=== PATIENT | male | born 1955 | race Two or more races ===

== ENCOUNTER → 2017-02-28 | Outpatient (CLI) | payer BC ==
[2017-02-28 10:36] LABS: Albumin 3.8 g/dL (3.4-5.0); Bilirubin, Total 0.5 mg/dL (0.2-1.0); Calcium 8.8 mg/dL (8.5-10.1); Potassium 4.5 mmol/L (3.5-5.1); Total Protein 7.7 g/dL (6.4-8.2)
== END | disposition home or self-care (01) ==
LOC: LAB 09:37
PROVIDERS: ATTEND Internal Medicine
DX: E11.9 Type 2 diabetes mellitus without complications (principal); I10 Essential (primary) hypertension; Z12.11 Encounter for screening for malignant neoplasm of colon
CPT/HCPCS: 36415; 80053; 82607; 83036; 84153; 84439; 84443

== ENCOUNTER → 2017-03-06 | Outpatient (CLI) | payer BC | END | disposition home or self-care (01) | LOC: LAB 06:53 | PROVIDERS: ATTEND Internal Medicine | DX: E11.9 Type 2 diabetes mellitus without complications (principal); I10 Essential (primary) hypertension; Z12.11 Encounter for screening for malignant neoplasm of colon | CPT/HCPCS: 82270 ==

== ENCOUNTER → 2018-04-09 | Outpatient (CLI) | payer BC ==
[2018-04-09 08:34] LABS: Basophils # (auto) 0 uL; Eosinophils # (auto) 0.1 uL; Hemoglobin 11.8 g/dL (13.5-17.5); Lymphocytes # (auto) 1.8 uL; Lymphocytes % (auto) 32.2 % (10.0-50.0); Monocytes # (auto) 0.5 uL; Neutrophils # (auto) 3.1 uL; Neutrophils % (auto) 56.4 % (37.0-80.0)
[2018-04-09 08:37] LABS: Basophils % (auto) 0.4 % (0.0-2.0); Eosinophils % (auto) 1.6 % (0.0-7.0); Mean Corpuscular Hemoglobin 24.1 pg (28.0-32.0); Mean Corpuscular Volume 75.5 fL (80.0-100.0); Monocytes % (auto) 9.4 % (0.0-12.0); Platelet Count (auto) 353 10^3/uL (140-450); Red Blood Cells 4.89 10^6/uL (4.5-5.90); Red Cell Distribution Width 16.9 % (11.8-14.3); White Blood Cell 5.5 10^3/uL (4.4-10.8)
[2018-04-09 08:53] LABS: Urine Bacteria NONE SEEN /hpf (None Seen); Urine Blood Negative /uL (Negative); Urine Mucus FEW (None Seen); Urine Specific Gravity 1.018 (1.001-1.035)
[2018-04-09 08:56] LABS: Urine WBC 0 /hpf (0 - 3)
[2018-04-09 09:04] LABS: Free T4 (Free Thyroxine) 1.2 ng/dL (0.89-1.76)
[2018-04-09 09:16] LABS: Albumin 3.9 g/dL (3.4-5.0); Bilirubin, Total 0.3 mg/dL (0.2-1.0); Potassium 4.3 mmol/L (3.5-5.1); Total Protein 7.9 g/dL (6.4-8.2)
== END | disposition home or self-care (01) ==
LOC: LAB 07:05
PROVIDERS: ATTEND Internal Medicine
DX: I12.9 Hypertensive chronic kidney disease with stage 1 through stage 4 chronic kidney disease, or unspecified chronic kidney disease (principal); E11.22 Type 2 diabetes mellitus with diabetic chronic kidney disease; N18.3 Chronic kidney disease, stage 3 (moderate); I80.9 Phlebitis and thrombophlebitis of unspecified site; E78.5 Hyperlipidemia, unspecified; Z85.46 Personal history of malignant neoplasm of prostate
CPT/HCPCS: 36415; 80053; 80061; 81001; 82043; 82607; 83036; 84439; 84443; 85025; 85652

== ENCOUNTER 2018-08-21 07:51 | Day surgery (SDC) | payer BC ==
[2018-08-18 09:52] LABS: Basophils # (auto) 0 uL; Basophils % (auto) 0.4 % (0.0-2.0); Eosinophils # (auto) 0.1 uL; Eosinophils % (auto) 0.9 % (0.0-7.0); Hemoglobin 11.5 g/dL (13.5-17.5); Lymphocytes # (auto) 1.9 uL; Lymphocytes % (auto) 27.1 % (10.0-50.0); Mean Corpuscular Hemoglobin 24.6 pg (28.0-32.0); Mean Corpuscular Hgb Conc. 32.9 g/dL (32.0-36.0); Mean Corpuscular Volume 74.8 fL (80.0-100.0); Monocytes # (auto) 0.7 uL; Monocytes % (auto) 9.8 % (0.0-12.0); Neutrophils # (auto) 4.3 uL; Neutrophils % (auto) 61.8 % (37.0-80.0); Nucleated Red Blood Cells % 0.1 %; Platelet Count (auto) 364 10^3/uL (140-450); Red Blood Cells 4.68 10^6/uL (4.5-5.90); Red Cell Distribution Width 17.6 % (11.8-14.3)
[2018-08-18 10:09] LABS: INR 0.95 (0.9-1.15); Partial Thromboplastin Time 24.8 sec (23.78-33.04); Prothrombin Time 10.2 sec (9.27-12.13)
[~2018-08-21] VITALS: Ht 160 cm; Wt 61.7 kg
[~2018-08-21 07:51] MED LIST: LEVO50TA7 PO; LISI10TA6 PO; METF-370 PO; PRAV20TA3 PO
[2018-08-21] MEDS ORDERED: SODIUM CHLORIDE LOCK 10 ML ONE (08:22)
[2018-08-21] MEDS ORDERED: diphenhdrAMINE HCL 50 MG/1 ML VL ONE (08:22)
[2018-08-21] MEDS ORDERED: FLUMAZENIL 0.1 MG/ML INJ 10ML MDV IV ONE (08:22)
[2018-08-21] MEDS ORDERED: NALOXONE HCL 0.4 MG/ML VIAL ONE (08:22)
[2018-08-21] MEDS: MIDAZOLAM HCL 5 MG/ML-1ML VIAL ONE ×2 (09:16→09:23)
[2018-08-21] MEDS: fentaNYL CITRATE 100 MCG/2 ML VL ONE ×2 (09:16→09:23)
[2018-08-21 10:13] VITALS: BP 102/67
== END 2018-08-21 10:13 | disposition home or self-care (01) ==
LOC: GI 07:51
PROVIDERS: ATTEND Internal Medicine Gastroenterology
DX: Z12.11 Encounter for screening for malignant neoplasm of colon (principal); D12.2 Benign neoplasm of ascending colon; D12.3 Benign neoplasm of transverse colon; D12.4 Benign neoplasm of descending colon; K57.30 Diverticulosis of large intestine without perforation or abscess without bleeding; K64.8 Other hemorrhoids; E11.9 Type 2 diabetes mellitus without complications; Z88.0 Allergy status to penicillin; Z79.84 Long term (current) use of oral hypoglycemic drugs; Z79.899 Other long term (current) drug therapy
CPT/HCPCS: 36415; 45380; 82962; 85025; 85610; 85730; J2250; J3010; J7030; 99152

== ENCOUNTER → 2018-12-07 | Outpatient (CLI) | payer BC ==
[2018-12-07 08:47] LABS: Urine Bacteria NONE SEEN /hpf (None Seen); Urine Blood Negative /uL (Negative); Urine Specific Gravity 1.021 (1.001-1.035); Urine WBC <1 /hpf (0 - 3)
[2018-12-07 08:53] LABS: Basophils # (auto) 0 uL; Eosinophils # (auto) 0.1 uL; Hemoglobin 11.8 g/dL (13.5-17.5); Neutrophils # (auto) 2.3 uL; Red Cell Distribution Width 17.5 % (11.8-14.3)
[2018-12-07 08:56] LABS: Basophils % (auto) 0.6 % (0.0-2.0); Eosinophils % (auto) 1.7 % (0.0-7.0); Hematocrit 36.2 % (41.0-53.0); Lymphocytes % (auto) 40.5 % (10.0-50.0); Mean Corpuscular Hemoglobin 24.5 pg (28.0-32.0); Mean Corpuscular Hgb Conc. 32.7 g/dL (32.0-36.0); Mean Corpuscular Volume 74.7 fL (80.0-100.0); Monocytes # (auto) 0.5 uL; Monocytes % (auto) 10.5 % (0.0-12.0); Neutrophils % (auto) 46.7 % (37.0-80.0); Platelet Count (auto) 340 10^3/uL (140-450); Red Blood Cells 4.84 10^6/uL (4.5-5.90); White Blood Cell 4.9 10^3/uL (4.4-10.8)
[2018-12-07 09:03] LABS: Chloride 100 mmol/L (98-107); Potassium 4.5 mmol/L (3.5-5.1); Sodium 134 mmol/L (136-145)
[2018-12-07 09:21] LABS: Alanine Aminotransferase 27 U/L (16-61); Albumin 4.1 g/dL (3.4-5.0); Alkaline Phosphatase 71 U/L (45-117); Anion Gap 8 (5-15); Aspartate Aminotransferase 24 U/L (15-37); BUN/Creatinine Ratio 14.2; Bilirubin, Total 0.4 mg/dL (0.2-1.0); Blood Urea Nitrogen 15 mg/dL (7-18); Calcium 8.7 mg/dL (8.5-10.1); Carbon Dioxide 26 mmol/L (21-32); Cholesterol 151 mg/dL (< 200); GFR African American > 60 mL/min; GFR Non-African American > 60 mL/min; Glucose 112 mg/dL (74-106); HDL Cholesterol 54 mg/dL (40-59); LDL Cholesterol 87 mg/dL (< 100); Triglycerides 94 mg/dL (< 150)
[2018-12-07 09:42] LABS: Free T4 (Free Thyroxine) 1.29 ng/dL (0.89-1.76)
[2018-12-07 09:43] LABS: Prostate Specific Antigen 0.64 ng/mL (0.0-4.0)
== END | disposition home or self-care (01) ==
LOC: LAB 07:17
PROVIDERS: ATTEND Internal Medicine
DX: E11.9 Type 2 diabetes mellitus without complications (principal); R55 Syncope and collapse; I10 Essential (primary) hypertension; Z79.84 Long term (current) use of oral hypoglycemic drugs
CPT/HCPCS: 36415; 80053; 80061; 81001; 82043; 82607; 83036; 84153; 84439; 84443; 85025; 85652

== ENCOUNTER → 2019-02-04 | Outpatient (CLI) | payer BC | END | disposition home or self-care (01) | LOC: XYW 10:12 | PROVIDERS: ATTEND Internal Medicine Cardiovascular Disease | DX: R55 Syncope and collapse (principal) | CPT/HCPCS: 93017; 93306 ==

== ENCOUNTER → 2019-06-02 | Outpatient (CLI) | payer BC ==
[2019-06-02 15:37] LABS: Basophils # (auto) 0 uL; Basophils % (auto) 0.5 % (0.0-2.0); Eosinophils # (auto) 0 uL; Eosinophils % (auto) 0.8 % (0.0-7.0); Hematocrit 40.9 % (41.0-53.0); Hemoglobin 13.8 g/dL (13.5-17.5); Lymphocytes # (auto) 1.6 uL; Lymphocytes % (auto) 28.1 % (10.0-50.0); Mean Corpuscular Hemoglobin 29.9 pg (28.0-32.0); Mean Corpuscular Hgb Conc. 33.8 g/dL (32.0-36.0); Mean Corpuscular Volume 88.5 fL (80.0-100.0); Monocytes # (auto) 0.6 uL; Monocytes % (auto) 9.9 % (0.0-12.0); Neutrophils # (auto) 3.5 uL; Neutrophils % (auto) 60.7 % (37.0-80.0); Nucleated Red Blood Cells % 0.1 %; Platelet Count (auto) 307 10^3/uL (140-450); Red Blood Cells 4.62 10^6/uL (4.5-5.90); Red Cell Distribution Width 14.1 % (11.8-14.3); White Blood Cell 5.8 10^3/uL (4.4-10.8)
[2019-06-02 16:33] LABS: Albumin 4.1 g/dL (3.4-5.0); Calcium 9.1 mg/dL (8.5-10.1); Potassium 4.3 mmol/L (3.5-5.1)
[2019-06-02 16:35] LABS: BUN/Creatinine Ratio 11.2; Bilirubin, Total 0.4 mg/dL (0.2-1.0); Total Protein 7.5 g/dL (6.4-8.2)
== END | disposition home or self-care (01) ==
LOC: LAB 15:24
PROVIDERS: ATTEND Internal Medicine
DX: E03.9 Hypothyroidism, unspecified (principal); E11.9 Type 2 diabetes mellitus without complications
CPT/HCPCS: 36415; 80053; 83036; 84439; 84443; 85025

== ENCOUNTER → 2019-09-07 | Outpatient (CLI) | payer BC ==
[2019-09-07 08:37] LABS: Basophils # (auto) 0 uL; Basophils % (auto) 0.5 % (0.0-2.0); Eosinophils # (auto) 0.1 uL; Eosinophils % (auto) 2.7 % (0.0-7.0); Hematocrit 42.1 % (41.0-53.0); Hemoglobin 14.3 g/dL (13.5-17.5); Lymphocytes # (auto) 1.3 uL; Lymphocytes % (auto) 29.5 % (10.0-50.0); Mean Corpuscular Hemoglobin 30.5 pg (28.0-32.0); Mean Corpuscular Hgb Conc. 33.9 g/dL (32.0-36.0); Mean Corpuscular Volume 89.9 fL (80.0-100.0); Monocytes # (auto) 0.5 uL; Neutrophils # (auto) 2.4 uL; Neutrophils % (auto) 55.3 % (37.0-80.0); Nucleated Red Blood Cells % 0.1 %; Platelet Count (auto) 278 10^3/uL (140-450); Red Blood Cells 4.68 10^6/uL (4.5-5.90); Red Cell Distribution Width 13.3 % (11.8-14.3); White Blood Cell 4.3 10^3/uL (4.4-10.8)
[2019-09-07 09:01] LABS: BUN/Creatinine Ratio 10.1; Calcium 9.2 mg/dL (8.5-10.1)
[2019-09-07 09:11] LABS: Bilirubin, Total 0.4 mg/dL (0.2-1.0)
== END | disposition home or self-care (01) ==
LOC: LAB 08:17
PROVIDERS: ATTEND Internal Medicine
DX: E11.9 Type 2 diabetes mellitus without complications (principal); I10 Essential (primary) hypertension
CPT/HCPCS: 36415; 80053; 83036; 84439; 84443; 85025; 85652

== ENCOUNTER → 2019-12-15 | Outpatient (CLI) | payer BC ==
[2019-12-15 07:26] LABS: Urine WBC None Seen /hpf (0 - 3)
[2019-12-15 07:33] LABS: Basophils # (auto) 0 uL; Basophils % (auto) 0.5 % (0.0-2.0); Eosinophils # (auto) 0 uL; Eosinophils % (auto) 0.9 % (0.0-7.0); Hematocrit 41.1 % (41.0-53.0); Hemoglobin 14.4 g/dL (13.5-17.5); Lymphocytes # (auto) 1.5 uL; Lymphocytes % (auto) 34.4 % (10.0-50.0); Mean Corpuscular Hemoglobin 30.9 pg (28.0-32.0); Mean Corpuscular Volume 88.5 fL (80.0-100.0); Monocytes # (auto) 0.4 uL; Monocytes % (auto) 9.5 % (0.0-12.0); Neutrophils # (auto) 2.4 uL; Neutrophils % (auto) 54.7 % (37.0-80.0); Platelet Count (auto) 277 10^3/uL (140-450); Red Blood Cells 4.65 10^6/uL (4.5-5.90); Red Cell Distribution Width 13.7 % (11.8-14.3); White Blood Cell 4.4 10^3/uL (4.4-10.8)
[2019-12-15 07:40] LABS: Urine Bacteria NONE SEEN /hpf (None Seen); Urine Blood Negative /uL (Negative); Urine Mucus FEW (None Seen)
[2019-12-15 07:53] LABS: Albumin 4.2 g/dL (3.4-5.0); Calcium 9.1 mg/dL (8.5-10.1); Potassium 4.6 mmol/L (3.5-5.1)
[2019-12-15 07:58] LABS: BUN/Creatinine Ratio 12.4; Bilirubin, Total 0.6 mg/dL (0.2-1.0); Total Protein 7.8 g/dL (6.4-8.2)
[2019-12-15 08:13] LABS: Free T4 (Free Thyroxine) 1.32 ng/dL (0.89-1.76); Prostate Specific Antigen 0.58 ng/mL (0.0-4.0)
== END | disposition home or self-care (01) ==
LOC: LAB 07:09
PROVIDERS: ATTEND Internal Medicine
DX: E11.9 Type 2 diabetes mellitus without complications (principal); R35.1 Nocturia
CPT/HCPCS: 36415; 80053; 80061; 81001; 82043; 83036; 84153; 84439; 84443; 85025; 85652

== ENCOUNTER 2020-01-27 08:31 | Day surgery (SDC) | payer BC ==
[2020-01-25 15:48] LABS: Basophils # (auto) 0 10 ^3/uL (0-0.2); Basophils % (auto) 0.4 % (0.0-2.0); Eosinophils # (auto) 0 10 ^3/uL (0-0.8); Eosinophils % (auto) 0.6 % (0.0-7.0); Hematocrit 40.5 % (41.0-53.0); Hemoglobin 13.9 g/dL (13.5-17.5); Lymphocytes # (auto) 1.6 10 ^3/uL (0.4-5.4); Lymphocytes % (auto) 31.2 % (10.0-50.0); Mean Corpuscular Hemoglobin 30.3 pg (28.0-32.0); Mean Corpuscular Hgb Conc. 34.3 g/dL (32.0-36.0); Mean Corpuscular Volume 88.2 fL (80.0-100.0); Monocytes # (auto) 0.5 10 ^3/uL (0-1.3); Monocytes % (auto) 9.5 % (0.0-12.0); Neutrophils % (auto) 58.3 % (37.0-80.0); Platelet Count (auto) 307 10^3/uL (140-450); Red Cell Distribution Width 13.6 % (11.8-14.3); White Blood Cell 5.1 10^3/uL (4.4-10.8)
[2020-01-25 15:52] LABS: Urine Bacteria NONE SEEN /hpf (None Seen); Urine Blood Negative /uL (Negative); Urine Specific Gravity 1.004 (1.001-1.035); Urine WBC <1 /hpf (0 - 3)
[2020-01-25 16:09] LABS: Albumin 4.3 g/dL (3.4-5.0); Potassium 4.5 mmol/L (3.5-5.1)
[2020-01-25 16:33] LABS: INR 1.01 (0.9-1.15); Partial Thromboplastin Time 25.3 sec (23.64-32.05)
[2020-01-25 16:38] LABS: BUN/Creatinine Ratio 12.1; Bilirubin, Total 0.3 mg/dL (0.2-1.0); Total Protein 7.9 g/dL (6.4-8.2)
[~2020-01-27] VITALS: Ht 160 cm; Wt 58.1 kg
[2020-01-27] MEDS ORDERED: BUPIVACAINE 0.25% INJ 50ML VIAL ONE (08:54)
[2020-01-27] MEDS ORDERED: levoFLOXacin 500MG 100 ML IV ONE (08:54)
[2020-01-27] MEDS ORDERED: SUCCINYLCHOLINE CHLORIDE 20 MG/ML 10ML VIAL IV ONE (09:17)
[2020-01-27] MEDS ORDERED: LIDOCAINE 1% (LOCAL ANESTH.) PF 5ml SDV ONE (09:17)
[2020-01-27] MEDS ORDERED: MIDAZOLAM HCL 1MG/1ML-2 ML VIAL ONE (09:20)
[2020-01-27] MEDS ORDERED: METOCLOPRAMIDE HCL 5MG/ml INJ 2ml VIAL ONE (09:20)
[2020-01-27] MEDS ORDERED: PROPOFOL 10 MG/ML 20 ML IV ONE (09:23)
[2020-01-27] MEDS ORDERED: ROCURONIUM 10MG/ML 10ML VIAL IV ONE (09:23)
[2020-01-27] MEDS ORDERED: fentaNYL CITRATE 100 MCG/2 ML VL ONE (09:36)
[2020-01-27] MEDS ORDERED: PHENYLEPHRINE HCL 10 MG/ML VL ONE (09:37)
[2020-01-27] MEDS ORDERED: ePHEDrine SULFATE 50 MG/ML AMP ONE (09:37)
[2020-01-27] MEDS ORDERED: STERILE WATER 20 ML ONE (09:37)
[2020-01-27] MEDS ORDERED: ACCU-CHEK COMFORT CURVE STRIP VI ONE (09:45)
[2020-01-27] MEDS ORDERED: ONDANSETRON HCL 4 MG/2 ML VIAL IV PRN (09:45)
[2020-01-27] MEDS ORDERED: ePHEDrine SULFATE 50 MG/ML AMP IV PRN (09:45)
[2020-01-27] MEDS ORDERED: NALOXONE HCL 0.4 MG/ML VIAL IV PRN (09:45)
[2020-01-27] MEDS ORDERED: HYDROmorphone HCL 2 MG/ML VL IV PRN (09:45)
[2020-01-27] MEDS ORDERED: BACITRACIN INJ 50000 UNIT VIAL ONE (09:51)
[2020-01-27] MEDS ORDERED: KETOROLAC TROMETH 30 MG/ML 1ML VIAL ONE (09:57)
[2020-01-27] MEDS ORDERED: GLYCOPYRROLATE 0.2 MG/ML 1ML VIAL ONE (10:13)
[2020-01-27] MEDS ORDERED: NEOSTIGMINE 1 MG/ML INJ (10mg/10ML VIAL) ONE (10:13)
[2020-01-27] MEDS: HYDROmorphone HCL 2 MG/ML VL IV PRN ×3 (10:50→11:12)
[2020-01-27 11:54] VITALS: BP 125/65
== END 2020-01-27 12:30 | disposition home or self-care (01) ==
LOC: SUR 08:31
PROVIDERS: ATTEND Surgery Pediatric Surgery
DX: K40.30 Unilateral inguinal hernia, with obstruction, without gangrene, not specified as recurrent (principal); K66.0 Peritoneal adhesions (postprocedural) (postinfection); I10 Essential (primary) hypertension; E11.40 Type 2 diabetes mellitus with diabetic neuropathy, unspecified; E03.9 Hypothyroidism, unspecified; Z79.84 Long term (current) use of oral hypoglycemic drugs; Z79.899 Other long term (current) drug therapy; Z88.0 Allergy status to penicillin
CPT/HCPCS: 36415; 49507; 80053; 81001; 82962; 85025; 85610; 85730; 88302; C1781; J0330; J1170; J1885; J1956; J2250; J2370; J2704; J2765; J3010; J3490; J7030

== ENCOUNTER 2020-01-27 22:00 | Inpatient (IN) | payer BC ==
[~2020-01-27] VITALS: Ht 160 cm; Wt 55.5 kg
[2020-01-27 22:38] LABS: Basophils # (auto) 0 10 ^3/uL (0-0.2); Basophils % (auto) 0.3 % (0.0-2.0); Eosinophils # (auto) 0 10 ^3/uL (0-0.8); Hematocrit 35.5 % (41.0-53.0); Hemoglobin 12.5 g/dL (13.5-17.5); Lymphocytes # (auto) 0.7 10 ^3/uL (0.4-5.4); Lymphocytes % (auto) 7.6 % (10.0-50.0); Mean Corpuscular Hemoglobin 31.2 pg (28.0-32.0); Mean Corpuscular Hgb Conc. 35.4 g/dL (32.0-36.0); Mean Corpuscular Volume 88.3 fL (80.0-100.0); Monocytes # (auto) 0.6 10 ^3/uL (0-1.3); Neutrophils # (auto) 7.3 10 ^3/uL (1.6-8.6); Neutrophils % (auto) 85.1 % (37.0-80.0); Platelet Count (auto) 249 10^3/uL (140-450); Red Blood Cells 4.02 10^6/uL (4.5-5.90); Red Cell Distribution Width 13.6 % (11.8-14.3); White Blood Cell 8.6 10^3/uL (4.4-10.8)
[2020-01-27 22:57] LABS: Albumin 3.5 g/dL (3.4-5.0); Calcium 8.1 mg/dL (8.5-10.1); Magnesium 1.6 mg/dL (1.6-2.6)
[2020-01-27 23:01] LABS: INR 1.09 (0.9-1.15); Partial Thromboplastin Time 24.1 sec (23.64-32.05)
[2020-01-27 23:02] LABS: BUN/Creatinine Ratio 11.2; Bilirubin, Total 0.6 mg/dL (0.2-1.0); Total Protein 6.8 g/dL (6.4-8.2)
[2020-01-27] MEDS ORDERED: ONDANSETRON HCL 4 MG/2 ML VIAL IV ONE (23:30)
[2020-01-28] VITALS (7 sets, daily range): BP systolic 117–166; BP diastolic 66–102
[2020-01-28 00:58] LABS: Urine Amorphous Crystal FEW /hpf (None Seen); Urine Bacteria NONE SEEN /hpf (None Seen); Urine Blood Negative /uL (Negative); Urine Mucus FEW (None Seen); Urine Specific Gravity 1.013 (1.001-1.035); Urine WBC 1 /hpf (0 - 3)
[2020-01-28] MEDS ORDERED: ONDANSETRON HCL 4 MG/2 ML VIAL IV PRN (02:30)
[2020-01-28] MEDS ORDERED: HYDROcodone-ACET 5/325MG TAB PO PRN (02:30)
[2020-01-28] MEDS ORDERED: cloNIDine HCL 0.1 MG TAB PO PRN (02:30)
[2020-01-28] MEDS ORDERED: TEMAZEPAM 15 MG CAP PO PRN (02:30)
[2020-01-28] MEDS ORDERED: DEXTROSE (50%) 50ML SYRG IV PRN (02:30)
[2020-01-28] MEDS ORDERED: ACETAMINOPHEN 325 MG TAB PO PRN (02:30)
[2020-01-28] MEDS ORDERED: MORPHINE SULF INJ 2 MG/ML SYRINGE 1ML IV PRN (02:45)
[2020-01-28] MEDS ORDERED: NITROGLYCERIN 0.4 MG SL TAB SL PRN (02:45)
[2020-01-28] MEDS: SODIUM CHLORIDE 0.9% 1,000 ML IV SCH ×2 (02:59→16:22)
[2020-01-28] MEDS: InsuLIN REG 1unit/0.01ml Soln (100units/ml) SC SCH ×4 (06:31→22:22)
[2020-01-28] MEDS: LEVOTHYROXINE SODIUM 25 MCG TAB PO SCH ×3 (06:31→07:55)
[2020-01-28] MEDS: ACCU-CHEK COMFORT CURVE STRIP VI SCH ×4 (06:34→22:22)
[2020-01-28] MEDS: FAMOTIDINE 20 MG TAB PO SCH ×2 (10:38→22:18)
[2020-01-28] MEDS: LISINOPRIL 10 MG TAB PO SCH (11:30)
[2020-01-28 11:52] LABS: Basophils # (auto) 0 10 ^3/uL (0-0.2); Basophils % (auto) 0.1 % (0.0-2.0); Eosinophils # (auto) 0 10 ^3/uL (0-0.8); Eosinophils % (auto) 0.4 % (0.0-7.0); Hematocrit 39.7 % (41.0-53.0); Hemoglobin 13.3 g/dL (13.5-17.5); Lymphocytes # (auto) 0.9 10 ^3/uL (0.4-5.4); Lymphocytes % (auto) 16.5 % (10.0-50.0); Mean Corpuscular Hemoglobin 29.8 pg (28.0-32.0); Mean Corpuscular Hgb Conc. 33.6 g/dL (32.0-36.0); Mean Corpuscular Volume 88.5 fL (80.0-100.0); Monocytes # (auto) 0.6 10 ^3/uL (0-1.3); Monocytes % (auto) 10.5 % (0.0-12.0); Neutrophils # (auto) 4.1 10 ^3/uL (1.6-8.6); Neutrophils % (auto) 72.5 % (37.0-80.0); Platelet Count (auto) 302 10^3/uL (140-450); Red Blood Cells 4.48 10^6/uL (4.5-5.90); Red Cell Distribution Width 13.6 % (11.8-14.3); White Blood Cell 5.7 10^3/uL (4.4-10.8)
[2020-01-28 12:04] LABS: BUN/Creatinine Ratio 7.1; Calcium 8.8 mg/dL (8.5-10.1); Potassium 3.8 mmol/L (3.5-5.1)
[2020-01-28 12:13] LABS: Folate (Folic Acid) 20.99 ng/mL (5.38-24)
[2020-01-28] MEDS ORDERED: PRAVASTATIN SODIUM 20 MG TAB PO SCH (22:00)
[2020-01-29 05:30] VITALS: BP 139/93
[2020-01-29] MEDS: SODIUM CHLORIDE 0.9% 1,000 ML IV SCH ×3 (05:33→09:12)
[2020-01-29 06:17] LABS: Calcium 8.9 mg/dL (8.5-10.1); Potassium 4.5 mmol/L (3.5-5.1)
[2020-01-29 06:20] LABS: BUN/Creatinine Ratio 11.5
[2020-01-29] MEDS: LEVOTHYROXINE SODIUM 25 MCG TAB PO SCH (06:44)
[2020-01-29] MEDS: ACCU-CHEK COMFORT CURVE STRIP VI SCH ×2 (06:51→11:30)
[2020-01-29] MEDS: InsuLIN REG 1unit/0.01ml Soln (100units/ml) SC SCH ×2 (06:51→12:15)
[2020-01-29 09:00] VITALS: BP 137/92
[2020-01-29] MEDS: FAMOTIDINE 20 MG TAB PO SCH (09:10)
[2020-01-29] MEDS: LISINOPRIL 10 MG TAB PO SCH (09:11)
[2020-01-29 12:32] VITALS: BP 137/92
== END 2020-01-29 13:32 | disposition home or self-care (01) | DRG 312 ==
LOC: EDBD 22:00 → EEVIPCON 22:00 → ER 22:00 → TELE-EAST 22:01 → ER 01-28 03:15
PROVIDERS: ADMIT Nurse Practitioner; ATTEND Internal Medicine
DX: R55 Syncope and collapse (principal); E87.1 Hypo-osmolality and hyponatremia; E86.1 Hypovolemia; I10 Essential (primary) hypertension; E78.5 Hyperlipidemia, unspecified; E11.65 Type 2 diabetes mellitus with hyperglycemia; E78.00 Pure hypercholesterolemia, unspecified; E03.9 Hypothyroidism, unspecified; Z79.899 Other long term (current) drug therapy; Z79.84 Long term (current) use of oral hypoglycemic drugs; Z88.0 Allergy status to penicillin
CPT/HCPCS: 36415; 70450; 71045; 72125; 80048; 80053; 81001; 82607; 82746; 82962; 83735; 83880; 84443; 84484; 85025; 85610; 85730; 87081; 93005; 93306; 93886; 96374; G0378; J2405

== ENCOUNTER → 2020-06-05 | Outpatient (CLI) | payer BC ==
[2020-06-05 13:41] LABS: Albumin 3.8 g/dL (3.4-5.0); Calcium 8.9 mg/dL (8.5-10.1); Potassium 4.2 mmol/L (3.5-5.1)
[2020-06-05 13:45] LABS: BUN/Creatinine Ratio 18.1; Bilirubin, Total 0.3 mg/dL (0.2-1.0); Total Protein 7.8 g/dL (6.4-8.2)
== END | disposition home or self-care (01) ==
LOC: LAB 12:39
PROVIDERS: ATTEND Internal Medicine
DX: E03.8 Other specified hypothyroidism (principal); E11.40 Type 2 diabetes mellitus with diabetic neuropathy, unspecified; I10 Essential (primary) hypertension
CPT/HCPCS: 36415; 80053; 82306; 83036; 84439; 84443

== ENCOUNTER 2020-08-18 17:25 | Emergency (ER) | payer BC ==
[~2020-08-18] VITALS: Ht 160 cm; Wt 55.3 kg
[~2020-08-18 17:25] MED LIST changes: +LISI-648 PO; -LISI10TA6 PO
[2020-08-18 18:16] LABS: Basophils # (auto) 0 10 ^3/uL (0-0.2); Basophils % (auto) 0.6 % (0.0-2.0); Eosinophils # (auto) 0.1 10 ^3/uL (0-0.8); Eosinophils % (auto) 1.3 % (0.0-7.0); Hematocrit 39.7 % (41.0-53.0); Hemoglobin 13.5 g/dL (13.5-17.5); Lymphocytes # (auto) 2.2 10 ^3/uL (0.4-5.4); Lymphocytes % (auto) 36.5 % (10.0-50.0); Mean Corpuscular Hemoglobin 29.9 pg (28.0-32.0); Mean Corpuscular Volume 87.9 fL (80.0-100.0); Monocytes # (auto) 0.6 10 ^3/uL (0-1.3); Monocytes % (auto) 10.3 % (0.0-12.0); Neutrophils # (auto) 3.1 10 ^3/uL (1.6-8.6); Neutrophils % (auto) 51.3 % (37.0-80.0); Nucleated Red Blood Cells % 0.1 %; Platelet Count (auto) 335 10^3/uL (140-450); Red Blood Cells 4.52 10^6/uL (4.5-5.90); Red Cell Distribution Width 13.8 % (11.8-14.3); White Blood Cell 6.1 10^3/uL (4.4-10.8)
[2020-08-18 18:35] LABS: Anion Gap 9 (5-15); BUN/Creatinine Ratio 13.4; Blood Urea Nitrogen 11 mg/dL (7-18); Calcium 9.3 mg/dL (8.5-10.1); Carbon Dioxide 25 mmol/L (21-32); Chloride 91 mmol/L (98-107); GFR African American 121 mL/min; GFR Non-African American 100 mL/min; Glucose 100 mg/dL (74-106); Magnesium 2.1 mg/dL (1.6-2.6); Potassium 4.3 mmol/L (3.5-5.1); Sodium 125 mmol/L (136-145)
[2020-08-18 18:37] LABS: INR 0.98 (0.9-1.15); Partial Thromboplastin Time 24.9 sec (23.0-31.2)
[2020-08-18 18:44] LABS: Alanine Aminotransferase 20 U/L (16-61); Alkaline Phosphatase 64 U/L (45-117); Aspartate Aminotransferase 16 U/L (15-37); Bilirubin, Total 0.4 mg/dL (0.2-1.0); Total Protein 7.8 g/dL (6.4-8.2)
[2020-08-18 19:19] LABS: Urine WBC None Seen /hpf (0 - 3)
[2020-08-18 19:31] LABS: Urine Bacteria NONE SEEN /hpf (None Seen); Urine Blood Negative /uL (Negative)
[2020-08-18 19:51] VITALS: BP 145/87
[2020-08-18] MEDS ORDERED: IOHEXOL 350 MG/ML 100ML IJ ONE (20:16)
== END 2020-08-18 20:41 | disposition home or self-care (01) ==
LOC: EEVIPCON 17:25 → ER 17:25
DX: H53.8 Other visual disturbances (principal); E11.9 Type 2 diabetes mellitus without complications; E78.5 Hyperlipidemia, unspecified; I10 Essential (primary) hypertension; Z79.899 Other long term (current) drug therapy; Z88.0 Allergy status to penicillin
CPT/HCPCS: 36415; 70450; 70480; 80053; 81001; 83735; 84484; 85025; 85610; 85730; 93005; 99285; Q9967

== ENCOUNTER → 2020-08-19 | Outpatient (CLI) | payer BC ==
[2020-08-19 11:26] LABS: Basophils # (auto) 0 10 ^3/uL (0-0.2); Basophils % (auto) 0.4 % (0.0-2.0); Eosinophils # (auto) 0 10 ^3/uL (0-0.8); Eosinophils % (auto) 0.9 % (0.0-7.0); Hematocrit 39.6 % (41.0-53.0); Hemoglobin 13.2 g/dL (13.5-17.5); Lymphocytes # (auto) 1.5 10 ^3/uL (0.4-5.4); Lymphocytes % (auto) 30.8 % (10.0-50.0); Mean Corpuscular Hemoglobin 29.6 pg (28.0-32.0); Mean Corpuscular Hgb Conc. 33.3 g/dL (32.0-36.0); Mean Corpuscular Volume 88.9 fL (80.0-100.0); Monocytes # (auto) 0.5 10 ^3/uL (0-1.3); Monocytes % (auto) 10.2 % (0.0-12.0); Neutrophils # (auto) 2.9 10 ^3/uL (1.6-8.6); Neutrophils % (auto) 57.7 % (37.0-80.0); Nucleated Red Blood Cells % 0.1 %; Platelet Count (auto) 308 10^3/uL (140-450); Red Blood Cells 4.46 10^6/uL (4.5-5.90); Red Cell Distribution Width 13.9 % (11.8-14.3)
[2020-08-19 12:15] LABS: Calcium 8.9 mg/dL (8.5-10.1); Potassium 5.1 mmol/L (3.5-5.1)
[2020-08-19 12:18] LABS: Bilirubin, Total 0.4 mg/dL (0.2-1.0); Total Protein 7.3 g/dL (6.4-8.2)
== END | disposition home or self-care (01) ==
LOC: LAB 11:08
PROVIDERS: ATTEND Internal Medicine
DX: E11.9 Type 2 diabetes mellitus without complications (principal)
CPT/HCPCS: 36415; 80053; 85025

== ENCOUNTER → 2020-08-22 | Outpatient (CLI) | payer BC ==
[2020-08-22 09:31] LABS: Basophils # (auto) 0 10 ^3/uL (0-0.2); Basophils % (auto) 0.5 % (0.0-2.0); Eosinophils # (auto) 0 10 ^3/uL (0-0.8); Eosinophils % (auto) 0.8 % (0.0-7.0); Hematocrit 39.2 % (41.0-53.0); Hemoglobin 13.4 g/dL (13.5-17.5); Lymphocytes # (auto) 1.1 10 ^3/uL (0.4-5.4); Lymphocytes % (auto) 21.1 % (10.0-50.0); Mean Corpuscular Hemoglobin 30.1 pg (28.0-32.0); Mean Corpuscular Hgb Conc. 34.1 g/dL (32.0-36.0); Mean Corpuscular Volume 88.3 fL (80.0-100.0); Monocytes # (auto) 0.5 10 ^3/uL (0-1.3); Monocytes % (auto) 10.6 % (0.0-12.0); Neutrophils # (auto) 3.4 10 ^3/uL (1.6-8.6); Platelet Count (auto) 310 10^3/uL (140-450); Red Blood Cells 4.44 10^6/uL (4.5-5.90); Red Cell Distribution Width 14.3 % (11.8-14.3); White Blood Cell 5.1 10^3/uL (4.4-10.8)
== END | disposition home or self-care (01) ==
LOC: LAB 09:14
PROVIDERS: ATTEND Internal Medicine
DX: G45.3 Amaurosis fugax (principal)
CPT/HCPCS: 36415; 85025; 85652; 86141

== ENCOUNTER → 2020-09-05 | Outpatient (CLI) | payer BC | END | disposition home or self-care (01) | LOC: Rad HDHVI 13:03 | PROVIDERS: ATTEND Internal Medicine Cardiovascular Disease | DX: G45.3 Amaurosis fugax (principal); I10 Essential (primary) hypertension | CPT/HCPCS: 93306 ==

== ENCOUNTER → 2020-09-18 | Outpatient (CLI) | payer BC ==
[~2020-09-18] MED LIST changes: +IOHEXOL 350 MG/ML 100ML IJ ONE
[2020-09-18 09:15] VITALS: BP 133/81
--- NOTE | 2020-09-18 09:15 | NUR ---
CLINIC PT ARRIVED TO THE CLINIC WITH ORDERS FOR CTA CAROTID R/O STENOSIS, A/OX4, AMBULATORY, BREATHING IS EVEN AND UNLABORED.
--- NOTE | 2020-09-18 09:20 | NUR ---
IV insertion IV access obtained, via clean sterile technique by inserting 18 gauge catheter at LAC after 1 attempt(s). IV secured properly. No trauma to site. Patient tolerated procedure well. LABS DRAWN AND SENT STAT. NOTE INSERTED BY BEATRIZ JACKSON
--- NOTE | 2020-09-18 10:40 | NUR ---
IV removal IV DC'd with sterile technique, catheter fully intact. Pressure dressing applied to site. Patient tolerated procedure well. Discharged with aftercare instructions per MD. NOTE: REMOVED BY BEATRIZ JACKSON
[2020-09-18 10:43] VITALS: BP 157/82
--- NOTE | 2020-09-18 10:43 | NUR ---
Discharge Instructions See e-MAR for any mediations given with this visit. Patient education given on disease process. Patient verbalized understanding. Previous labs reviewed. Patient discharged in stable condition with after care instructions and follow up appointment. PT ADVISED TO INCREASE FLUID INTAKE FOR THE NEXT 24 TO 48 HOURS.
== END | disposition home or self-care (01) ==
LOC: Rad HDHVI 09:07
PROVIDERS: ATTEND Internal Medicine Cardiovascular Disease
DX: I67.2 Cerebral atherosclerosis (principal); R94.4 Abnormal results of kidney function studies; I65.29 Occlusion and stenosis of unspecified carotid artery
CPT/HCPCS: 36415; 70498; 82565; G0463; Q9967

== ENCOUNTER → 2021-01-16 | Outpatient (CLI) | payer BC ==
[~2021-01-16] MED LIST changes: -IOHEXOL 350 MG/ML 100ML IJ ONE
== END | disposition home or self-care (01) ==
LOC: LAB 09:39
PROVIDERS: ATTEND Physician Assistant
DX: Z20.822 Contact with and (suspected) exposure to COVID-19 (principal)
CPT/HCPCS: C9803; U0003

== ENCOUNTER → 2021-06-30 | Outpatient (CLI) | payer BC ==
[~2021-06-30] MED LIST changes: -LISI-648 PO; +LISI-716 PO
[2021-06-30 08:40] LABS: Urine WBC None Seen /hpf (0 - 3)
[2021-06-30 08:51] LABS: Basophils # (auto) 0 10 ^3/uL (0-0.2); Basophils % (auto) 0.5 % (0.0-2.0); Eosinophils # (auto) 0.2 10 ^3/uL (0-0.8); Eosinophils % (auto) 2.8 % (0.0-7.0); Hematocrit 39.1 % (41.0-53.0); Hemoglobin 13.6 g/dL (13.5-17.5); Lymphocytes # (auto) 2.1 10 ^3/uL (0.4-5.4); Lymphocytes % (auto) 35.2 % (10.0-50.0); Mean Corpuscular Hemoglobin 29.3 pg (28.0-32.0); Mean Corpuscular Hgb Conc. 34.8 g/dL (32.0-36.0); Mean Corpuscular Volume 84.2 fL (80.0-100.0); Monocytes # (auto) 0.7 10 ^3/uL (0-1.3); Monocytes % (auto) 12.7 % (0.0-12.0); Neutrophils # (auto) 2.8 10 ^3/uL (1.6-8.6); Neutrophils % (auto) 48.8 % (37.0-80.0); Nucleated Red Blood Cells % 0.1 %; Red Blood Cells 4.64 10^6/uL (4.5-5.90); Red Cell Distribution Width 14.5 % (11.8-14.3); White Blood Cell 5.8 10^3/uL (4.4-10.8)
[2021-06-30 09:04] LABS: Urine Bacteria NONE SEEN /hpf (None Seen); Urine Blood 1+ /uL (Negative); Urine Mucus FEW (None Seen); Urine Specific Gravity 1.022 (1.001-1.035)
[2021-06-30 09:10] LABS: Albumin 3.7 g/dL (3.4-5.0); Potassium 4.3 mmol/L (3.5-5.1)
[2021-06-30 09:15] LABS: BUN/Creatinine Ratio 15.4; Bilirubin, Total 0.5 mg/dL (0.2-1.0); Total Protein 7.4 g/dL (6.4-8.2)
[2021-07-02 08:04] LABS: Free T4 (Free Thyroxine) 1.61 ng/dL (0.89-1.76); Prostate Specific Antigen 0.54 ng/mL (0.0-4.0)
== END | disposition home or self-care (01) ==
LOC: LAB 08:28
PROVIDERS: ATTEND Internal Medicine
DX: E11.9 Type 2 diabetes mellitus without complications (principal)
CPT/HCPCS: 36415; 80053; 80061; 81001; 82043; 82607; 83036; 84153; 84439; 84443; 85025; 85652

== ENCOUNTER → 2021-11-27 | Outpatient (CLI) | payer BC ==
[2021-11-27 12:04] LABS: Potassium 5.2 mmol/L (3.5-5.1)
[2021-11-27 12:07] LABS: BUN/Creatinine Ratio 14.7; Bilirubin, Total 0.3 mg/dL (0.2-1.0); Total Protein 7.3 g/dL (6.4-8.2)
== END | disposition home or self-care (01) ==
LOC: LAB 11:06
PROVIDERS: ATTEND Internal Medicine
DX: E11.21 Type 2 diabetes mellitus with diabetic nephropathy (principal); I10 Essential (primary) hypertension; E03.9 Hypothyroidism, unspecified; E11.9 Type 2 diabetes mellitus without complications; G62.9 Polyneuropathy, unspecified
CPT/HCPCS: 36415; 80053; 82607; 83036; 84443

== ENCOUNTER → 2022-03-28 | Outpatient (CLI) | payer BC ==
[2022-03-28 10:50] LABS: Basophils # (auto) 0 10 ^3/uL (0-0.2); Basophils % (auto) 0.8 % (0.0-2.0); Eosinophils # (auto) 0.1 10 ^3/uL (0-0.8); Eosinophils % (auto) 1.5 % (0.0-7.0); Hematocrit 38.4 % (41.0-53.0); Hemoglobin 12.5 g/dL (13.5-17.5); Lymphocytes # (auto) 1.5 10 ^3/uL (0.4-5.4); Lymphocytes % (auto) 34.6 % (10.0-50.0); Mean Corpuscular Hemoglobin 27.6 pg (28.0-32.0); Mean Corpuscular Hgb Conc. 32.7 g/dL (32.0-36.0); Mean Corpuscular Volume 84.6 fL (80.0-100.0); Monocytes # (auto) 0.4 10 ^3/uL (0-1.3); Monocytes % (auto) 9.2 % (0.0-12.0); Neutrophils # (auto) 2.4 10 ^3/uL (1.6-8.6); Neutrophils % (auto) 53.9 % (37.0-80.0); Red Blood Cells 4.54 10^6/uL (4.5-5.90); Red Cell Distribution Width 14.6 % (11.8-14.3); White Blood Cell 4.4 10^3/uL (4.4-10.8)
[2022-03-28 11:25] LABS: Albumin 3.6 g/dL (3.4-5.0); Calcium 8.7 mg/dL (8.5-10.1); Potassium 4.7 mmol/L (3.5-5.1)
[2022-03-28 11:28] LABS: BUN/Creatinine Ratio 14.3; Bilirubin, Total 0.3 mg/dL (0.2-1.0); Total Protein 7.3 g/dL (6.4-8.2)
== END | disposition home or self-care (01) ==
LOC: LAB 10:38
PROVIDERS: ATTEND Internal Medicine
DX: I10 Essential (primary) hypertension (principal); E11.9 Type 2 diabetes mellitus without complications
CPT/HCPCS: 36415; 80053; 83036; 84443; 85025

== ENCOUNTER → 2022-04-01 | Outpatient (CLI) | payer BC | END | disposition home or self-care (01) | LOC: LAB 09:35 | PROVIDERS: ATTEND Internal Medicine | DX: D64.9 Anemia, unspecified (principal); Z86.010 Personal history of colon polyps | CPT/HCPCS: 82270 ==

== ENCOUNTER → 2022-07-12 | Outpatient (CLI) | payer BC ==
[2022-07-12 07:28] LABS: Basophils # (auto) 0 10 ^3/uL (0-0.2); Basophils % (auto) 0.9 % (0.0-2.0); Eosinophils # (auto) 0.1 10 ^3/uL (0-0.8); Eosinophils % (auto) 3.2 % (0.0-7.0); Hematocrit 38.9 % (41.0-53.0); Lymphocytes # (auto) 1.8 10 ^3/uL (0.4-5.4); Lymphocytes % (auto) 41.9 % (10.0-50.0); Mean Corpuscular Hgb Conc. 33.4 g/dL (32.0-36.0); Mean Corpuscular Volume 86.8 fL (80.0-100.0); Monocytes # (auto) 0.5 10 ^3/uL (0-1.3); Monocytes % (auto) 10.7 % (0.0-12.0); Neutrophils # (auto) 1.8 10 ^3/uL (1.6-8.6); Neutrophils % (auto) 43.3 % (37.0-80.0); Red Blood Cells 4.48 10^6/uL (4.5-5.90); Red Cell Distribution Width 15.3 % (11.8-14.3); White Blood Cell 4.3 10^3/uL (4.4-10.8)
[2022-07-12 07:45] LABS: Urine Bacteria NONE SEEN /hpf (None Seen); Urine Blood Negative /uL (Negative); Urine Specific Gravity 1.017 (1.001-1.035); Urine WBC 1 /hpf (0 - 3)
[2022-07-12 08:28] LABS: Potassium 4.2 mmol/L (3.5-5.1)
[2022-07-12 08:42] LABS: Albumin 3.6 g/dL (3.4-5.0); BUN/Creatinine Ratio 14.9; Bilirubin, Total 0.4 mg/dL (0.2-1.0); Calcium 8.7 mg/dL (8.5-10.1)
[2022-07-12 11:57] LABS: Free T4 (Free Thyroxine) 1.39 ng/dL (0.89-1.76); Prostate Specific Antigen 0.54 ng/mL (0.0-4.0)
== END | disposition home or self-care (01) ==
LOC: LAB 06:49
PROVIDERS: ATTEND Internal Medicine
DX: I10 Essential (primary) hypertension (principal); E11.9 Type 2 diabetes mellitus without complications; D64.9 Anemia, unspecified
CPT/HCPCS: 36415; 80053; 80061; 81001; 82043; 82607; 83036; 83540; 84153; 84439; 84443; 85025; 85652

== ENCOUNTER 2022-11-19 09:47 | Outpatient (CLI) | payer BC, MEDICARE ==
[~2022-11-19] VITALS: Ht 160 cm; Wt 57.2 kg
[2022-11-19 10:14] LABS: Basophils # (auto) 0.1 10 ^3/uL (0-0.2); Basophils % (auto) 1.2 % (0.0-2.0); Eosinophils # (auto) 0.1 10 ^3/uL (0-0.8); Eosinophils % (auto) 1.2 % (0.0-7.0); Hemoglobin 12.9 g/dL (13.5-17.5); Monocytes # (auto) 0.5 10 ^3/uL (0-1.3); Nucleated Red Blood Cells % 0.1 %; White Blood Cell 5.7 10^3/uL (4.4-10.8)
[2022-11-19 10:16] LABS: Hematocrit 38.7 % (41.0-53.0); Lymphocytes # (auto) 1.8 10 ^3/uL (0.4-5.4); Lymphocytes % (auto) 31.1 % (10.0-50.0); Mean Corpuscular Hgb Conc. 33.3 g/dL (32.0-36.0); Mean Corpuscular Volume 87.1 fL (80.0-100.0); Monocytes % (auto) 8.9 % (0.0-12.0); Neutrophils # (auto) 3.3 10 ^3/uL (1.6-8.6); Neutrophils % (auto) 57.6 % (37.0-80.0); Red Blood Cells 4.44 10^6/uL (4.5-5.90); Red Cell Distribution Width 13.8 % (11.8-14.3)
[2022-11-19 10:45] LABS: Albumin 3.6 g/dL (3.4-5.0); Potassium 4.8 mmol/L (3.5-5.1)
[2022-11-19 10:48] LABS: INR 1.02 (0.9-1.15); Partial Thromboplastin Time 26.1 sec (24.6-33.4)
[2022-11-19 10:49] LABS: BUN/Creatinine Ratio 16.1; Bilirubin, Total 0.4 mg/dL (0.2-1.0); Total Protein 7.4 g/dL (6.4-8.2)
[2022-11-19] MEDS ORDERED: CLOP75TA28 PO (13:19)
== END 2022-11-19 12:42 | disposition home or self-care (01) ==
LOC: LAB 09:47 → EDSTATUS 11-20 13:15
PROVIDERS: ATTEND Internal Medicine Gastroenterology
DX: Z12.11 Encounter for screening for malignant neoplasm of colon (principal); Z86.010 Personal history of colon polyps; E78.5 Hyperlipidemia, unspecified; I12.9 Hypertensive chronic kidney disease with stage 1 through stage 4 chronic kidney disease, or unspecified chronic kidney disease; E03.9 Hypothyroidism, unspecified; N18.2 Chronic kidney disease, stage 2 (mild); E11.22 Type 2 diabetes mellitus with diabetic chronic kidney disease; Z01.812 Encounter for preprocedural laboratory examination; Z20.822 Contact with and (suspected) exposure to COVID-19; Z88.0 Allergy status to penicillin
CPT/HCPCS: 36415; 80053; 85025; 85610; 85730; U0003

== ENCOUNTER → 2023-01-31 | Day surgery (SDC) | payer BC, MEDICARE ==
[2023-01-29 09:22] LABS: Basophils # (auto) 0 10 ^3/uL (0-0.2); Basophils % (auto) 0.6 % (0.0-2.0); Eosinophils # (auto) 0.1 10 ^3/uL (0-0.8); Eosinophils % (auto) 1.9 % (0.0-7.0); Hematocrit 38.9 % (41.0-53.0); Hemoglobin 13.3 g/dL (13.5-17.5); Lymphocytes # (auto) 2.3 10 ^3/uL (0.4-5.4); Lymphocytes % (auto) 40.8 % (10.0-50.0); Mean Corpuscular Hemoglobin 30.1 pg (28.0-32.0); Mean Corpuscular Hgb Conc. 34.2 g/dL (32.0-36.0); Mean Corpuscular Volume 88.1 fL (80.0-100.0); Monocytes # (auto) 0.6 10 ^3/uL (0-1.3); Monocytes % (auto) 10.5 % (0.0-12.0); Neutrophils # (auto) 2.7 10 ^3/uL (1.6-8.6); Neutrophils % (auto) 46.2 % (37.0-80.0); Nucleated Red Blood Cells % 0.1 %; Red Blood Cells 4.41 10^6/uL (4.5-5.90); White Blood Cell 5.8 10^3/uL (4.4-10.8)
[2023-01-29 09:36] LABS: INR 0.97 (0.9-1.15); Partial Thromboplastin Time 25.9 sec (24.6-33.4)
[2023-01-29 10:17] LABS: Urine Bacteria NONE SEEN /hpf (None Seen); Urine Blood Negative /uL (Negative); Urine Specific Gravity 1.011 (1.001-1.035); Urine WBC <1 /hpf (0 - 3)
[2023-01-29 10:42] LABS: Albumin 3.6 g/dL (3.4-5.0); Bilirubin, Total 0.4 mg/dL (0.2-1.0); Calcium 8.8 mg/dL (8.5-10.1); Potassium 4.5 mmol/L (3.5-5.1); Total Protein 7.4 g/dL (6.4-8.2)
[~2023-01-31] VITALS: Ht 160 cm; Wt 58.1 kg
[~2023-01-31] MED LIST changes: +CLOP75TA28 PO; +LIDOCAINE 2% (LOCAL ANESTH.) PF 5ml SDV ONE; -METF-370 PO; +PROPOFOL 10 MG/ML 20 ML IV ONE; +ePHEDrine SULFATE 50 MG/ML AMP ONE
[2023-01-31 11:08] VITALS: BP 128/79
== END | disposition home or self-care (01) ==
LOC: GI 08:53
PROVIDERS: ATTEND Internal Medicine Gastroenterology
DX: Z12.11 Encounter for screening for malignant neoplasm of colon (principal); K57.30 Diverticulosis of large intestine without perforation or abscess without bleeding; K63.5 Polyp of colon; K64.0 First degree hemorrhoids; Z20.822 Contact with and (suspected) exposure to COVID-19
CPT/HCPCS: 36415; 45385; 80053; 81001; 85025; 85610; 85730; J2001; J2704; J7030; U0003

== ENCOUNTER → 2023-09-03 | Outpatient (CLI) | payer BC, MEDICARE ==
[~2023-09-03] MED LIST changes: -LIDOCAINE 2% (LOCAL ANESTH.) PF 5ml SDV ONE; -LISI-716 PO; +LISI10TA34 PO; -PROPOFOL 10 MG/ML 20 ML IV ONE; -ePHEDrine SULFATE 50 MG/ML AMP ONE
[2023-09-03 15:50] LABS: Urine Bacteria NONE SEEN /hpf (None Seen); Urine Blood TRACE /uL (Negative); Urine Clarity Clear (Clear); Urine Color Colorless (Yellow); Urine Protein, UAD Negative (Negative); Urine Specific Gravity 1.012 (1.001-1.035); Urine Urobilinogen Normal (Negative); Urine WBC <1 /hpf (0 - 3); Urine pH 6.5 (5.0-8.0)
== END | disposition home or self-care (01) ==
LOC: LAB 15:33
PROVIDERS: ATTEND Internal Medicine
DX: R31.29 Other microscopic hematuria (principal)
CPT/HCPCS: 81001

== ENCOUNTER → 2024-07-05 | Outpatient (CLI) | payer OTHER ==
[2024-07-05 07:25] LABS: Urine Bacteria None Seen /hpf (None Seen)
[2024-07-05 07:38] LABS: Basophils # (auto) 0 10 ^3/uL (0-0.2); Basophils % (auto) 0.3 % (0.0-2.0); Eosinophils # (auto) 0.3 10 ^3/uL (0-0.8); Eosinophils % (auto) 6.2 % (0.0-7.0); Hematocrit 38.4 % (41.0-53.0); Hemoglobin 12.6 g/dL (13.5-17.5); Lymphocytes % (auto) 35.4 % (10.0-50.0); Mean Corpuscular Hemoglobin 28.4 pg (28.0-32.0); Mean Corpuscular Hgb Conc. 32.9 g/dL (32.0-36.0); Mean Corpuscular Volume 86.5 fL (80.0-100.0); Monocytes # (auto) 0.6 10 ^3/uL (0-1.3); Monocytes % (auto) 10.3 % (0.0-12.0); Neutrophils # (auto) 2.6 10 ^3/uL (1.6-8.6); Neutrophils % (auto) 47.8 % (37.0-80.0); Nucleated Red Blood Cells % 0.1 %; Platelet Count (auto) 262 10^3/uL (140-450); Red Blood Cells 4.43 10^6/uL (4.5-5.90); Red Cell Distribution Width 14.6 % (11.8-14.3); White Blood Cell 5.5 10^3/uL (4.4-10.8)
[2024-07-05 07:46] LABS: Urine Blood TRACE /uL (Negative); Urine Clarity Clear (Clear); Urine Color Light-Yellow (Yellow); Urine Protein, UAD Negative (Negative); Urine Specific Gravity 1.016 (1.001-1.035); Urine Urobilinogen Normal (Negative); Urine WBC <1 /hpf (0 - 3); Urine pH 5.5 (5.0-9.0)
[2024-07-05 08:10] LABS: Alanine Aminotransferase 22 U/L (7-40); Albumin 4.3 g/dL (3.2-4.8); Alkaline Phosphatase 56 U/L (46-116); Anion Gap 1 (5-15); Aspartate Aminotransferase 19 U/L (13-40); BUN/Creatinine Ratio 10.6 (10.0-20.0); Blood Urea Nitrogen 10 mg/dL (9-23); Calcium 9.6 mg/dL (8.7-10.4); Carbon Dioxide 29 mmol/L (20-30); Chloride 103 mmol/L (98-107); Cholesterol 138 mg/dL (< 200); Glucose 103 mg/dL (74-106); HDL Cholesterol 46 mg/dL (40-59); LDL Cholesterol 80 mg/dL (< 100); Potassium 4.1 mmol/L (3.5-5.1); Sodium 133 mmol/L (136-145); Triglycerides 68 mg/dL (< 150)
[2024-07-05 08:11] LABS: Bilirubin, Total 0.7 mg/dL (0.2-1.0); Total Protein 6.8 g/dL (5.7-8.2)
[2024-07-05 09:12] LABS: Erythrocyte Sedimentation Rate 12 mm/hr (0-20)
[2024-07-05 09:19] LABS: Creatinine, Urine 89.39 mg/dL (30.0-125.0)
[2024-07-05 10:35] LABS: Prostate Specific Antigen 0.44 ng/mL (0.0-4.0)
[2024-07-05 10:38] LABS: Free T4 (Free Thyroxine) 1.46 ng/dL (0.89-1.76)
== END | disposition home or self-care (01) ==
LOC: LAB 07:12
PROVIDERS: ATTEND Internal Medicine
DX: I10 Essential (primary) hypertension (principal); E11.9 Type 2 diabetes mellitus without complications; E78.5 Hyperlipidemia, unspecified
CPT/HCPCS: 36415; 80053; 80061; 81001; 82043; 82570; 82607; 83036; 84153; 84439; 84443; 85025; 85652

== ENCOUNTER → 2024-08-18 | Outpatient (CLI) | payer OTHER ==
[2024-08-18 11:39] LABS: Basophils # (auto) 0 10 ^3/uL (0-0.2); Basophils % (auto) 0.6 % (0.0-2.0); Eosinophils # (auto) 0.3 10 ^3/uL (0-0.8); Eosinophils % (auto) 6.7 % (0.0-7.0); Hematocrit 38.4 % (41.0-53.0); Hemoglobin 12.9 g/dL (13.5-17.5); Lymphocytes # (auto) 1.9 10 ^3/uL (0.4-5.4); Lymphocytes % (auto) 36.1 % (10.0-50.0); Mean Corpuscular Hemoglobin 29.5 pg (28.0-32.0); Mean Corpuscular Hgb Conc. 33.6 g/dL (32.0-36.0); Mean Corpuscular Volume 87.8 fL (80.0-100.0); Monocytes # (auto) 0.5 10 ^3/uL (0-1.3); Monocytes % (auto) 9.6 % (0.0-12.0); Neutrophils # (auto) 2.4 10 ^3/uL (1.6-8.6); Nucleated Red Blood Cells % 0.1 %; Platelet Count (auto) 249 10^3/uL (140-450); Red Blood Cells 4.38 10^6/uL (4.5-5.90); Red Cell Distribution Width 14.8 % (11.8-14.3); White Blood Cell 5.2 10^3/uL (4.4-10.8)
[2024-08-18 11:58] LABS: Erythrocyte Sedimentation Rate 8 mm/hr (0-20)
[2024-08-19 08:06] LABS: Complement C3 110 mg/dL (82-167); Rheumatoid Arthritis Factor <10.0 IU/mL (<14.0)
[2024-08-19 11:08] LABS: Anti-Nuclear Antibody Direct Positive (Negative); Anti-dsDNA Antibody <1 IU/mL (0-9); Antiscleroderma-70 Antibody <0.2 AI (0.0-0.9); RNP Antibody 1.5 AI (0.0-0.9); Sjogren's Anti-SS-A Antibody <0.2 AI (0.0-0.9); Sjogren's Anti-SS-B Antibody <0.2 AI (0.0-0.9); Smith Antibody <0.2 AI (0.0-0.9)
== END | disposition home or self-care (01) ==
LOC: LAB 10:31
PROVIDERS: ATTEND Internal Medicine
DX: E11.9 Type 2 diabetes mellitus without complications (principal); L30.9 Dermatitis, unspecified
CPT/HCPCS: 36415; 82785; 83516; 83540; 83615; 85025; 85652; 86003; 86160; 86225; 86235; 86256; 86376; 86431

== ENCOUNTER → 2025-03-01 | Outpatient (CLI) | payer OTHER ==
[2025-03-01 11:18] LABS: Urine Bacteria None Seen /hpf (None Seen)
[2025-03-01 11:36] LABS: Urine Blood TRACE /uL (Negative); Urine Clarity Clear (Clear); Urine Color Light-Yellow (Yellow); Urine Mucus FEW (None Seen); Urine Protein, UAD 1+ (Negative); Urine Squamous Epithelial Cell FEW /hpf (<5); Urine Urobilinogen Normal (Negative); Urine WBC 1 /HPF (0-3)
[2025-03-01 11:39] LABS: Basophils # (auto) 0 10 ^3/uL (0-0.2); Basophils % (auto) 0.8 % (0.0-2.0); Eosinophils # (auto) 0.2 10 ^3/uL (0-0.8); Hematocrit 40.5 % (41.0-53.0); Hemoglobin 13.7 g/dL (13.5-17.5); Lymphocytes # (auto) 1.7 10 ^3/uL (0.4-5.4); Lymphocytes % (auto) 34.1 % (10.0-50.0); Mean Corpuscular Hemoglobin 28.6 pg (28.0-32.0); Mean Corpuscular Hgb Conc. 33.7 g/dL (32.0-36.0); Mean Corpuscular Volume 84.7 fL (80.0-100.0); Monocytes # (auto) 0.6 10 ^3/uL (0-1.3); Monocytes % (auto) 11.3 % (0.0-12.0); Neutrophils # (auto) 2.5 10 ^3/uL (1.6-8.6); Neutrophils % (auto) 49.8 % (37.0-80.0); Platelet Count (auto) 253 10^3/uL (140-450); Red Blood Cells 4.79 10^6/uL (4.5-5.90); Red Cell Distribution Width 15.4 % (11.8-14.3); White Blood Cell 5.1 10^3/uL (4.4-10.8)
[2025-03-01 11:55] LABS: Prostate Specific Antigen 0.53 ng/mL (0.0-4.0)
[2025-03-01 11:58] LABS: Alanine Aminotransferase 17 U/L (7-40); Albumin 4.8 g/dL (3.2-4.8); Alkaline Phosphatase 57 U/L (46-116); Anion Gap 7 (5-15); Aspartate Aminotransferase 20 U/L (13-40); BUN/Creatinine Ratio 12.5 (10.0-20.0); Blood Urea Nitrogen 12 mg/dL (9-23); Calcium 10.1 mg/dL (8.7-10.4); Carbon Dioxide 29 mmol/L (20-31); Chloride 100 mmol/L (98-107); Glucose 110 mg/dL (74-106); LDL Cholesterol 90 mg/dL (< 100); Potassium 4.8 mmol/L (3.5-5.1); Sodium 136 mmol/L (136-145); Total Protein 7.7 g/dL (5.7-8.2); Triglycerides 67 mg/dL (< 150)
[2025-03-01 11:59] LABS: Bilirubin, Total 0.5 mg/dL (0.2-1.0); Cholesterol 159 mg/dL (< 200); Free T4 (Free Thyroxine) 1.27 ng/dL (0.89-1.76); HDL Cholesterol 52 mg/dL (40-59)
[2025-03-01 12:44] LABS: Creatinine, Urine 137.4 mg/dL (30.0-125.0)
[2025-03-01 12:57] LABS: Erythrocyte Sedimentation Rate 35 mm/hr (0-20)
== END | disposition home or self-care (01) ==
LOC: LAB 10:56
PROVIDERS: ATTEND Internal Medicine
DX: I10 Essential (primary) hypertension (principal); E11.9 Type 2 diabetes mellitus without complications; Z79.899 Other long term (current) drug therapy
CPT/HCPCS: 36415; 80053; 80061; 81001; 82043; 82570; 82607; 83036; 84153; 84439; 84443; 85025; 85652

== ENCOUNTER 2025-08-11 07:36 | Outpatient (CLI) | payer OTHER ==
[2025-08-11 08:02] LABS: Hematocrit 39.5 % (41.0-53.0); Hemoglobin 13.1 g/dL (13.5-17.5); Mean Corpuscular Hemoglobin 27.2 pg (28.0-32.0); Mean Corpuscular Volume 81.9 fL (80.0-100.0); Nucleated Red Blood Cells % 0.0 %
[2025-08-11 08:55] LABS: Alanine Aminotransferase 17 U/L (7-40); Albumin 4.5 g/dL (3.2-4.8); Alkaline Phosphatase 60 U/L (46-116); Anion Gap 8 (5-15); BUN/Creatinine Ratio 10.2 (10.0-20.0); Bilirubin, Total 0.5 mg/dL (0.2-1.0); Blood Urea Nitrogen 10 mg/dL (9-23); Calcium 9.4 mg/dL (8.7-10.4); Carbon Dioxide 27 mmol/L (20-31); Chloride 95 mmol/L (98-107); Glucose 112 mg/dL (74-106); Potassium 5.0 mmol/L (3.5-5.1); Sodium 130 mmol/L (136-145); Total Protein 7.4 g/dL (5.7-8.2)
== END 2025-08-11 17:00 | disposition home or self-care (01) ==
LOC: LAB 07:36
PROVIDERS: ATTEND Internal Medicine
DX: E11.9 Type 2 diabetes mellitus without complications (principal); I10 Essential (primary) hypertension
CPT/HCPCS: 36415; 80053; 83036; 85025